=== PATIENT | male | born 1970 | race Two or more races ===

== ENCOUNTER 2018-07-29 14:54 | Emergency (ER) | payer MEDICAID, OTHER ==
[~2018-07-29] VITALS: Ht 167.6 cm; Wt 90.7 kg
[2018-07-29 15:10] VITALS: BP 137/87
== END 2018-07-29 21:08 | disposition home or self-care (01) ==
LOC: ER 14:57
DX: M54.2 Cervicalgia (principal); M62.838 Other muscle spasm; R51 Headache; V43.52XA Car driver injured in collision with other type car in traffic accident, initial encounter; Y93.I9 Activity, other involving external motion; Y92.488 Other paved roadways as the place of occurrence of the external cause; Y99.8 Other external cause status
CPT/HCPCS: 70450; 72040

== ENCOUNTER 2023-04-26 22:46 | Inpatient (IN) | payer SELFPAY ==
[~2023-04-26] VITALS: Ht 167.6 cm; Wt 77.0 kg
[2023-04-26] MEDS ORDERED: IOHEXOL 300 MG/ML 100ML BOTTLE IJ ONE (23:34)
[2023-04-26 23:53] LABS: Basophils # (auto) 0.1 10 ^3/uL (0-0.2); Basophils % (auto) 0.8 % (0.0-2.0); Eosinophils # (auto) 0.3 10 ^3/uL (0-0.8); Eosinophils % (auto) 4.7 % (0.0-7.0); Hematocrit 47.5 % (41.0-53.0); Hemoglobin 16.1 g/dL (13.5-17.5); Lymphocytes # (auto) 1.8 10 ^3/uL (0.4-5.4); Lymphocytes % (auto) 25.7 % (10.0-50.0); Mean Corpuscular Hemoglobin 31.1 pg (28.0-32.0); Mean Corpuscular Hgb Conc. 33.9 g/dL (32.0-36.0); Mean Corpuscular Volume 91.8 fL (80.0-100.0); Monocytes # (auto) 0.3 10 ^3/uL (0-1.3); Neutrophils # (auto) 4.5 10 ^3/uL (1.6-8.6); Neutrophils % (auto) 64.8 % (37.0-80.0); Red Blood Cells 5.17 10^6/uL (4.5-5.90); Red Cell Distribution Width 13.5 % (11.8-14.3); White Blood Cell 6.9 10^3/uL (4.4-10.8)
[2023-04-27 00:05] VITALS: PULSE 67; RESP 18; O2SAT 94
[2023-04-27 00:11] LABS: Acetaminophen < 2.0 UG/ML (10.0-20.0)
[2023-04-27 00:12] LABS: Alanine Aminotransferase 36 U/L (7-40); Albumin 4.1 g/dL (3.2-4.8); Alkaline Phosphatase 67 U/L (46-116); Anion Gap 12 (5-15); Aspartate Aminotransferase 34 U/L (13-40); BUN/Creatinine Ratio 9.3 (10.0-20.0); Bilirubin, Total 0.7 mg/dL (0.2-1.0); Blood Alcohol 7.2 mg/dL (<10); Blood Urea Nitrogen 12 mg/dL (9-23); Calcium 8.6 mg/dL (8.7-10.4); Carbon Dioxide 23 mmol/L (20-30); Chloride 106 mmol/L (98-107); Glucose 212 mg/dL (74-106); Lipase 45 U/L (12-53); Potassium 3.3 mmol/L (3.5-5.1); Sodium 141 mmol/L (136-145); Total Protein 6.9 g/dL (5.7-8.2)
[2023-04-27 00:13] LABS: Salicylate < 3.0 mg/dL (2.8-20.0)
[2023-04-27 00:19] LABS: Lactic Acid w/Reflex 3.6 mmol/L (0.4-2.0)
[2023-04-27] MEDS ORDERED: SODIUM CHLORIDE 0.9% 1,000 ML IV ONE ×2 (00:30→11:30)
[2023-04-27] MEDS ORDERED: PIPERACILLIN-TAZOB 3.375GM 100 ML IV ONE (01:45)
[2023-04-27] MEDS ORDERED: ASPirin 81 mg TAB PO ONE (04:00)
[2023-04-27 04:27] LABS: Urine Bacteria NONE SEEN /hpf (None Seen); Urine Blood 2+ /uL (Negative); Urine Clarity Clear (Clear); Urine Color Yellow (Yellow); Urine Protein, UAD 1+ (Negative); Urine Urobilinogen Normal (Negative); Urine WBC 2 /hpf (0 - 3)
[2023-04-27 04:33] LABS: Urine Specific Gravity > 1.050 (1.001-1.035)
[2023-04-27 04:36] LABS: Amphetamine Screen, Urine Neg (NEGATIVE); Barbiturate Scree,Urine Neg (NEGATIVE); Benzodiazephine Screen, Urine Neg (NEGATIVE); Cannabinoid Screen, Urine Pos (NEGATIVE); Cocaine Screen, Urine Pos (NEGATIVE); Opiate Scree,Urine Neg (NEGATIVE); Phencyclidine Screen, Urine Neg (NEGATIVE)
[2023-04-27] MEDS ORDERED: ENOXAPARIN SOD 80 MG/0.8ML SYRINGE SC ONE (07:30)
[2023-04-27 08:00] VITALS: PULSE 67; RESP 22; O2SAT 98
[2023-04-27] MEDS ORDERED: MORPHINE SULFATE INJ 2 MG/ml SYRG IV PRN (11:15)
[2023-04-27] MEDS ORDERED: ACETAMINOPHEN 325 MG TAB PO PRN (11:15)
[2023-04-27] MEDS ORDERED: POTASSIUM EFFERVESENT TAB 25 MEQ PO ONE (11:15)
[2023-04-27] MEDS ORDERED: NITROGLYCERIN 0.4 MG SL TAB SL PRN (11:15)
[2023-04-27] MEDS: ENOXAPARIN SOD 80 MG/0.8ML SYRINGE SC SCH ×2 (11:18→23:36)
[2023-04-27 11:37] LABS: Triglycerides 140 mg/dL (< 150)
[2023-04-27 11:38] LABS: LDL Cholesterol 82 mg/dL (< 100)
[2023-04-27 11:39] LABS: Cholesterol 158 mg/dL (< 200); HDL Cholesterol 35 mg/dL (40-59)
[2023-04-27] MEDS: SODIUM CHLORIDE 0.9% 1,000 ML IV SCH ×2 (14:23→21:44)
[2023-04-27 23:57] VITALS: BP 147/86; PULSE 58; RESP 20; TEMP 98.7; O2SAT 94
[2023-04-28] MEDS: SODIUM CHLORIDE 0.9% 1,000 ML IV SCH ×2 (03:55→11:51)
[2023-04-28 05:00] VITALS: BP 127/85; PULSE 55; RESP 18; TEMP 98; O2SAT 92
[2023-04-28 05:35] LABS: Basophils # (auto) 0.1 10 ^3/uL (0-0.2); Basophils % (auto) 0.7 % (0.0-2.0); Eosinophils # (auto) 0.2 10 ^3/uL (0-0.8); Eosinophils % (auto) 3.2 % (0.0-7.0); Hematocrit 43.2 % (41.0-53.0); Hemoglobin 14.6 g/dL (13.5-17.5); Lymphocytes # (auto) 2.9 10 ^3/uL (0.4-5.4); Mean Corpuscular Hemoglobin 31.3 pg (28.0-32.0); Mean Corpuscular Hgb Conc. 33.9 g/dL (32.0-36.0); Mean Corpuscular Volume 92.5 fL (80.0-100.0); Monocytes # (auto) 0.5 10 ^3/uL (0-1.3); Monocytes % (auto) 6.4 % (0.0-12.0); Neutrophils # (auto) 3.4 10 ^3/uL (1.6-8.6); Neutrophils % (auto) 48.7 % (37.0-80.0); Red Blood Cells 4.67 10^6/uL (4.5-5.90)
[2023-04-28 05:55] LABS: Alanine Aminotransferase 27 U/L (7-40); Albumin 3.4 g/dL (3.2-4.8); Alkaline Phosphatase 53 U/L (46-116); Anion Gap 6 (5-15); Aspartate Aminotransferase 25 U/L (13-40); Blood Urea Nitrogen 14 mg/dL (9-23); Calcium 7.9 mg/dL (8.7-10.4); Carbon Dioxide 26 mmol/L (20-30); Chloride 110 mmol/L (98-107); Glucose 99 mg/dL (74-106); Potassium 3.8 mmol/L (3.5-5.1); Sodium 142 mmol/L (136-145)
[2023-04-28 05:56] LABS: Bilirubin, Total 0.5 mg/dL (0.2-1.0); Total Protein 5.7 g/dL (5.7-8.2)
[2023-04-28 08:00] VITALS: PULSE 56
[2023-04-28 09:00] VITALS: BP 156/88; PULSE 60; RESP 14; TEMP 98.8; O2SAT 94
[2023-04-28] MEDS: ENOXAPARIN SOD 80 MG/0.8ML SYRINGE SC SCH (09:01)
[2023-04-28] MEDS ORDERED: ASPirin 81 mg TAB PO SCH (10:00)
[2023-04-28 13:00] VITALS: BP 166/85; PULSE 58; RESP 18; TEMP 98.5; O2SAT 97
[2023-04-28] MEDS ORDERED: ASPI-325 PO (13:33)
[2023-04-28 14:08] VITALS: TEMP 36.9
== END 2023-04-28 15:59 | disposition home or self-care (01) | DRG 917 ==
LOC: ER 22:46 → EDBD 22:46 → TELE 04-27 11:05 → TELE-WESTW 04-27 23:42
PROVIDERS: ADMIT Nurse Practitioner Family; ATTEND Nurse Practitioner Family
DX: T50.991A Poisoning by other drugs, medicaments and biological substances, accidental (unintentional), initial encounter (principal); G93.41 Metabolic encephalopathy; I21.4 Non-ST elevation (NSTEMI) myocardial infarction; E87.20 Acidosis, unspecified; E78.5 Hyperlipidemia, unspecified; E87.6 Hypokalemia; I10 Essential (primary) hypertension; R73.03 Prediabetes; F19.10 Other psychoactive substance abuse, uncomplicated; Y92.89 Other specified places as the place of occurrence of the external cause
CPT/HCPCS: 36415; 80053; 80061; 80307; 80320; 80329; 81001; 83036; 83605; 83690; 83735; 84443; 84484; 85025; 87040; 93005; 93306; 96361; 96365; 96372; G0378; J2543